=== PATIENT | male | born 1955 | race Caucasian/White ===

== ENCOUNTER 2017-07-19 16:50 | Inpatient (IN) | payer SELFPAY ==
[~2017-07-19] VITALS: Ht 157.5 cm; Wt 68.0 kg
[2017-07-19] MEDS ORDERED: SODIUM CHLORIDE 0.9% 1,000 ML IV ONE (18:04)
[2017-07-19] MEDS ORDERED: ONDANSETRON HCL 4MG/2ML VIAL IV STA (18:04)
[2017-07-19] MEDS ORDERED: MORPHINE SULFATE 4 MG/ML CPJ (NOT FOR IM USE) IV STA (18:04)
[2017-07-19] MEDS ORDERED: MORPHINE SULFATE 2 MG/ML CPJ (NOT FOR IM USE) IV NR (18:15)
[2017-07-19 18:22] LABS: CLARITY URINE CLEAR (CLEAR); COLOR URINE YELLOW (YELLOW); GLUCOSE URINE NEGATIVE (NEGATIVE); KETONES URINE NEGATIVE (NEGATIVE); LEUKOCYTE ESTERASE URINE NEGATIVE (NEGATIVE); NITRITE URINE NEGATIVE (NEGATIVE); OCCULT BLOOD URINE NEGATIVE (NEGATIVE); PH URINE 7.5 (4.5-8.0); PROTEIN URINE NEGATIVE (NEGATIVE); SPECIFIC GRAVITY URINE 1.022 (1.005-1.030); UROBILINOGEN URINE 0.2 E.U./dL (0.2-1.0)
[2017-07-19 18:56] LABS: HEMATOCRIT. 41.5 % (42.0-52.0); MEAN CORPUSCULAR HEMOGLOBIN 30.6 pg (28.0-32.0); MEAN CORPUSCULAR VOLUME 90.5 fL (80.0-94.0); PLATELET 184 x1000/uL (130-400); RED BLOOD CELL COUNT 4.59 mill/uL (4.7-6.1); RED CELL DISTRIBUTION WIDTH 13.3 % (11.6-14.6)
[2017-07-19 18:57] LABS: CHLORIDE 104 mEq/L (98-107)
[2017-07-19 18:58] LABS: PARTIAL THROMBOPLASTIN TIME 28.1 sec (23.4-31.0); PROTHROMBIN TIME 10.5 sec (9.4-11.6)
[2017-07-19 19:07] LABS: CARBON DIOXIDE 32 mEq/L (21-32); TROPONIN I < 0.02 ng/mL (0.00-0.04)
[2017-07-19 19:18] LABS: PLATELET ESTIMATE NORMAL
[2017-07-19] MEDS ORDERED: PIPERACILLIN/TAZ 3.375G PREMIX 50 ML IV ONE (19:45)
[2017-07-19] MEDS ORDERED: TRAMADOL 50MG TABLET PO PRN (21:30)
[2017-07-19] MEDS ORDERED: MORPHINE SULFATE 2 MG/ML CPJ (NOT FOR IM USE) IV PRN (21:30)
[2017-07-19] MEDS ORDERED: KETOROLAC 15MG/ML VIAL IV PRN (21:30)
[2017-07-19] MEDS ORDERED: DOCUSATE SODIUM 100MG CAPSULE PO PRN (21:30)
[2017-07-19] MEDS ORDERED: ONDANSETRON HCL 4MG/2ML VIAL IV PRN (21:30)
[2017-07-19] MEDS ORDERED: CLONIDINE 0.1MG TABLET PO PRN (21:30)
[2017-07-19] MEDS ORDERED: GUAIFENESIN 200MG/10ML SUGAR FREE UDC PO PRN (21:30)
[2017-07-19] MEDS ORDERED: ACETAMINOPHEN 325MG TABLET PO PRN (21:30)
[2017-07-19] MEDS ORDERED: DIPHENHYDRAMINE 50MG/ML VIAL IV PRN (21:30)
[2017-07-19] MEDS ORDERED: IPRATROPIUM/ALBUTEROL 0.5-3(2.5)MG/3ML NEB INH PRN (21:30)
[2017-07-19] MEDS ORDERED: MAGNESIUM/ALUMINUM HYDROXIDE/SIMETHICONE 30ML UDC PO PRN (21:30)
[2017-07-19] MEDS ORDERED: LORAZEPAM 0.5MG TABLET PO PRN (21:30)
[2017-07-19] MEDS ORDERED: NA PHOS,M-B/NA PHOS,DI-BA ENEMA 118ML PR PRN (21:30)
[2017-07-19] MEDS ORDERED: ZOLPIDEM TARTRATE 5MG TABLET PO PRN (22:00)
[2017-07-19 22:26] VITALS: BP 151/88
[2017-07-19 22:37] VITALS: BP 151/88
[2017-07-19] MEDS: DEXT 5%/LACTATED RINGERS 1,000 ML IV SCH (22:53)
[2017-07-19] MEDS: ENOXAPARIN 30MG/0.3ML SYR SUBCUT SCH (22:55)
[2017-07-20] VITALS: BP 140/89
[2017-07-20] MEDS ORDERED: PIPERACILLIN/TAZ 3.375G PREMIX 50 ML IV SCH ×2 (03:00→06:00)
[2017-07-20 04:00] VITALS: BP 146/87
[2017-07-20 08:00] VITALS: BP 127/73
[2017-07-20] MEDS: FAMOTIDINE 20MG/2ML VIAL IV SCH ×2 (08:28→20:42)
[2017-07-20] MEDS: METOPROLOL TARTRATE 25MG TABLET PO SCH ×2 (08:28→20:41)
[2017-07-20] MEDS: PIPERACILLIN/TAZ 3.375G PREMIX 50 ML IV SCH ×3 (10:12→20:44)
[2017-07-20] MEDS: ENOXAPARIN 30MG/0.3ML SYR SUBCUT SCH ×2 (10:16→23:38)
[2017-07-20] MEDS: DEXT 5%/LACTATED RINGERS 1,000 ML IV SCH (11:57)
[2017-07-20 12:00] VITALS: BP 118/64
[2017-07-20 16:00] VITALS: BP 116/76
[2017-07-20 19:13] LABS: CREATINE KINASE 87 IU/L (39-308); CREATINE KINASE MB FRACTION < 0.5 ng/mL (0.5-3.6); TROPONIN I < 0.02 ng/mL (0.00-0.04)
[2017-07-20 20:00] VITALS: BP 132/79
[2017-07-21] VITALS: BP 122/81
[2017-07-21 04:00] VITALS: BP 132/82
[2017-07-21] MEDS: PIPERACILLIN/TAZ 3.375G PREMIX 50 ML IV SCH ×2 (04:10→08:23)
[2017-07-21] MEDS: DEXT 5%/LACTATED RINGERS 1,000 ML IV SCH (04:11)
[2017-07-21 05:56] LABS: BASOPHILS % 0.5 % (0.0-2.0); EOSINOPHILS % 2.1 % (0.0-5.0); HEMATOCRIT. 37.8 % (42.0-52.0); HEMOGLOBIN. 13.2 g/dL (14.0-18.0); LYMPHOCYTES % 12.5 % (20.0-50.0); MEAN CORPUSCULAR HEMOGLOBIN 31.6 pg (28.0-32.0); MEAN CORPUSCULAR VOLUME 90.5 fL (80.0-94.0); MEAN PLATELET VOLUME 9.2 fl (7.4-10.4); MONOCYTES % 8.8 % (2.0-8.0); NEUTROPHILS % 76.1 % (40.0-76.0); PLATELET 161 x1000/uL (130-400); RED BLOOD CELL COUNT 4.18 mill/uL (4.7-6.1); RED CELL DISTRIBUTION WIDTH 13.5 % (11.6-14.6)
[2017-07-21 06:25] LABS: CARBON DIOXIDE 28 mEq/L (21-32); CHLORIDE 103 mEq/L (98-107)
[2017-07-21 08:00] VITALS: BP 122/75
[2017-07-21] MEDS: FAMOTIDINE 20MG/2ML VIAL IV SCH (08:22)
[2017-07-21] MEDS: METOPROLOL TARTRATE 25MG TABLET PO SCH (08:23)
[2017-07-21 09:45] VITALS: BP 122/75
== END 2017-07-21 11:15 | disposition home or self-care (01) ==
LOC: ER 16:50 → EDBEDREQ 18:09 → 5WST 20:08 → EDBEDREQ 20:16 → ENRESERV 21:21
PROVIDERS: ADMIT Internal Medicine; ATTEND Internal Medicine
DX: K80.12 Calculus of gallbladder with acute and chronic cholecystitis without obstruction (principal); R07.9 Chest pain, unspecified
CPT/HCPCS: 36415; 71010; 74176; 76705; 80053; 80061; 81003; 82550; 82553; 83036; 83690; 84484; 85025; 85610; 85730; 86850; 86900; 93005; 93970; 96361; 96365; 96375; 96376; 99285; J1650; J2270; J2405; J2543; J3490; J7030